=== PATIENT | male | born 1995 | race Caucasian/White ===

== ENCOUNTER 2018-08-02 22:24 | Emergency (ER) | payer OTHER ==
[~2018-08-02] VITALS: Ht 182.9 cm; Wt 63.5 kg
[2018-08-02 23:29] LABS: ABSOLUTE BASOPHILS 0.1 thou/uL (0.0-0.2); ABSOLUTE EOSINOPHILS 0.1 thou/uL (0.0-0.7); ABSOLUTE LYMPHOCYTES 2.5 thou/uL (0.8-5.3); ABSOLUTE MONOCYTES 0.9 thou/uL (0.0-1.2); BASOPHILS 0.7 %; EOSINOPHILS 1.2 %; HEMATOCRIT 43.8 % (42.0-52.0); LYMPHOCYTES 26.4 %; MCH 31.1 pg (26.0-34.0); MCHC 34.4 g/dL (28.0-37.0); MCV 90.6 fL (80.0-100.0); MONOCYTES 9.2 %; MPV 7.5 fl. (7.2-11.1); NUCLEATED RBCS 0 /100WBC; PLATELET COUNT* 279 thou/uL (150-400); POLYS 62.5 %; RBC 4.83 mil/uL (4.50-6.00); RDW-CV 13.1 % (10.5-14.5); WBC 9.6 thou/uL (4.0-11.0)
[2018-08-02 23:39] LABS: URINE BILIRUBIN NEGATIVE (Negative); URINE BLOOD NEGATIVE (Negative); URINE CLARITY CLEAR; URINE COLOR YELLOW; URINE GLUCOSE-RANDOM NEGATIVE (Negative); URINE KETONES NEGATIVE (Negative); URINE LEUKOCYTES-REFLEX NEGATIVE (Negative); URINE NITRITE-REFLEX NEGATIVE (Negative); URINE PROTEIN NEGATIVE (Negative); URINE UROBILINOGEN 0.2 E.U./dl (0.2-1.0)
[2018-08-02 23:41] LABS: CREATININE 0.9 mg/dL (0.6-1.3); POTASSIUM 3.7 mmol/L (3.5-5.1)
[2018-08-02 23:45] LABS: AMP/METHAMP Negative (Negative); BARBITURATES Negative (Negative); BENZODIAZEPINES Negative (Negative); COCAINE Negative (Negative); METHADONE Negative (Negative); OPIATES Negative (Negative); PCP Negative (Negative); THC Negative (Negative)
[2018-08-02 23:46] LABS: ALBUMIN 4.4 g/dL (3.4-5.0); TOTAL BILIRUBIN 0.3 mg/dL (<0.1-1.0); TOTAL PROTEIN 7.4 g/dL (6.4-8.2)
[2018-08-02 23:48] LABS: ALCOHOL < 10 mg/dL (<10)
[2018-08-02 23:50] LABS: ACETAMINOPHEN < 2 ug/mL (10-30)
== END 2018-08-04 17:38 ==
LOC: M.ERS 22:24
PROVIDERS: Emergency Medicine
DX: R45.851 Suicidal ideations (principal); F31.9 Bipolar disorder, unspecified; F41.9 Anxiety disorder, unspecified

== ENCOUNTER 2020-02-27 05:19 | Emergency (ER) | payer OTHER ==
[~2020-02-27] VITALS: Ht 182.9 cm; Wt 63.5 kg
[2020-02-27 06:33] LABS: ABSOLUTE EOSINOPHILS 0.3 thou/uL (0.0-0.7); ABSOLUTE LYMPHOCYTES 2.4 thou/uL (0.8-5.3); ABSOLUTE MONOCYTES 0.6 thou/uL (0.0-1.2); ABSOLUTE NEUTROPHILS 2.9 thou/uL (1.6-8.1); BASOPHILS 0.8 %; EOSINOPHILS 5.2 %; HEMATOCRIT 40.4 % (42.0-52.0); HEMOGLOBIN 14.1 gm/dL (14.0-18.0); LYMPHOCYTES 38.5 %; MCHC 34.9 g/dL (28.0-37.0); MCV 88.9 fL (80.0-100.0); MPV 7.8 fl. (7.2-11.1); NUCLEATED RBCS 0 /100WBC; PLATELET COUNT* 241 thou/uL (150-400); POLYS 45.5 %; RBC 4.55 mil/uL (4.50-6.00); RDW-CV 13.7 % (10.5-14.5); WBC 6.3 thou/uL (4.0-11.0)
[2020-02-27 06:37] LABS: CALCIUM 8.4 mg/dL (8.5-10.1); CREATININE 0.9 mg/dL (0.6-1.3); POTASSIUM 3.3 mmol/L (3.5-5.1)
[2020-02-27 06:39] LABS: ACETAMINOPHEN < 2 ug/mL (10-30); ALBUMIN 3.4 g/dL (3.4-5.0); ALCOHOL < 10 mg/dL (<10); SALICYLATE < 2.8 mg/dL (2.8-20.0); TOTAL BILIRUBIN 0.2 mg/dL (<0.1-1.0); TOTAL PROTEIN 6.1 g/dL (6.4-8.2)
[2020-02-27 07:22] LABS: URINE BILIRUBIN NEGATIVE (Negative); URINE BLOOD NEGATIVE (Negative); URINE CLARITY CLEAR; URINE COLOR YELLOW; URINE GLUCOSE-RANDOM NEGATIVE (Negative); URINE KETONES NEGATIVE (Negative); URINE LEUKOCYTES-REFLEX NEGATIVE (Negative); URINE NITRITE-REFLEX NEGATIVE (Negative); URINE PROTEIN NEGATIVE (Negative); URINE UROBILINOGEN 0.2 E.U./dl (0.2-1.0)
[2020-02-27 07:29] LABS: AMP/METHAMP POSITIVE (Negative); BARBITURATES Negative (Negative); BENZODIAZEPINES Negative (Negative); COCAINE Negative (Negative); METHADONE Negative (Negative); OPIATES Negative (Negative); PCP Negative (Negative); THC Negative (Negative)
[2020-02-27 10:43] VITALS: BP 116/78
== END 2020-02-27 10:45 | disposition still patient (30) ==
LOC: M.ERS 05:19
PROVIDERS: Emergency Medicine
DX: F15.93 Other stimulant use, unspecified with withdrawal (principal); R45.851 Suicidal ideations; F31.9 Bipolar disorder, unspecified; F41.9 Anxiety disorder, unspecified